=== PATIENT | female | born 1990 | race Two or more races ===

== ENCOUNTER 2018-11-10 17:24 | Emergency (ER) | payer OTHER ==
[~2018-11-10] VITALS: Ht 154.9 cm; Wt 57.2 kg
== END 2018-11-10 23:18 | disposition home or self-care (01) ==
LOC: ER 17:24
DX: R51 Headache (principal); M54.2 Cervicalgia; M62.830 Muscle spasm of back

== ENCOUNTER 2020-01-25 17:47 | Outpatient (CLI) | payer OTHER | END 2020-01-25 17:52 | disposition home or self-care (01) | LOC: RAD 17:47 | PROVIDERS: ATTEND Internal Medicine | DX: R05 Cough (principal); U07.1 COVID-19 ==